=== PATIENT | male | born 1980 | race American Indian/Alaskan Native ===

== ENCOUNTER 2021-11-26 10:12 | Emergency (ER) | payer SELFPAY ==
[2021-11-26] MEDS ORDERED: diphenhydrAMINE 50 MG/ML VIAL IV ONE (12:11)
[2021-11-26] MEDS ORDERED: methylPREDNISolone Sod Succinate 125 MG/2 ML INJ IV ONE (12:12)
[2021-11-26 12:13] VITALS: BP 140/95
[2021-11-26 12:41] LABS: Basophils % (Auto) 0.4 % (0.0-1.8); Eosinophils % (Auto) 0.7 % (0.0-4.3); Hematocrit 34.8 % (35.5-45.6); Hemoglobin 11.4 gm/dl (11.8-15.2); Lymphocytes # (Auto) 1.4 K/mm3 (1.2-5.4); Lymphocytes % (Auto) 20.2 % (13.4-35.0); Mean Corpuscular HGB Conc 33 % (32-34); Mean Corpuscular Volume 85 fl (84-94); Monocytes # (Auto) 0.6 K/mm3 (0.0-0.8); Monocytes % (Auto) 7.9 % (0.0-7.3); Platelet Count 446 K/mm3 (140-440); Red Blood Count 4.08 M/mm3 (3.65-5.03); Red Cell Distribution Width 15.9 % (13.2-15.2)
[2021-11-26 12:55] LABS: BUN/Creatinine Ratio 6; Blood Urea Nitrogen 5 mg/dL (9-20); Calcium 8.7 mg/dL (8.4-10.2); Hemolysis Index 1
--- NOTE | 2021-11-26 12:59 | Emergency Department Report ---
ED ENT HPI - General Chief complaint: Dental/Oral Stated complaint: THROAT/TONGUE/FACE SWOLLEN Source: patient Mode of arrival: Ambulatory Limitations: No Limitations - History of Present Illness Initial comments: 41-year-old male presents to the emergency department with left-sided throat, tongue swelling face swelling which all began suddenly when he woke up this morning. States he had an episode of tonsillitis for a while", but has not followed up with it. Currently not taking any antibiotics. He denies dental pain, headache dizziness or vision changes, he denies taking any medications no FRANCIS inhibitor's, No fever, no nausea vomiting no sick contacts or recent travel.. Reports about a week ago he had an episode where his extremities were swollen and he was seen at [facility] with a negative work-up and discharged home. States he still itching all over his extremities, does not seem to get better with no management. MD complaint: sore throat, difficulty swallowing -: Sudden Location: tongue, throat Severity: moderate Severity scale (0 -10): 0 Improves with: none Worsens with: none Associated Symptoms: denies: fever, cough, gum swelling, toothache, pain with swallowing, sore throat, tinnitus, hearing loss, discharge from ear - Related Data Previous Rx's Medication Instructions Recorded Last Taken Type Acetamin/Codeine 120-12Mg/5 ml 5 ml PO TID PRN #60 oz 11/26/21 Unknown Rx [Tylenol/Codeine] Clindamycin [Clindamycin CAP] 300 mg PO Q8H 7 Days #21 cap 11/26/21 Unknown Rx Ibuprofen [Motrin 600 MG tab] 600 mg PO Q8H PRN #30 tablet 11/26/21 Unknown Rx Triamcinolone 0.5% [Kenalog 0.5% 1 applic TP TID #1 tube 11/26/21 Unknown Rx CREAM] diphenhydrAMINE [Benadryl CAP] 25 mg PO Q8HR PRN #30 capsule 11/26/21 Unknown Rx methylPREDNISolone [Medrol 4MG 4 mg PO DAILY #1 11/26/21 Unknown Rx DOSEPAK (21 tabs)] Allergies Allergy/AdvReac Type Severity Reaction Status Date / Time No Known Allergies Allergy Unverified 11/26/21 12:06 ED Dental HPI - General Chief complaint: Dental/Oral Stated complaint: THROAT/TONGUE/FACE SWOLLEN Source: patient Mode of arrival: Ambulatory Limitations: No Limitations - History of Present Illness MD complaint: sore throat, difficulty swallowing -: Sudden Severity: moderate - Related Data Previous Rx's Medication Instructions Recorded Last Taken Type Acetamin/Codeine 120-12Mg/5 ml 5 ml PO TID PRN #60 oz 11/26/21 Unknown Rx [Tylenol/Codeine] Clindamycin [Clindamycin CAP] 300 mg PO Q8H 7 Days #21 cap 11/26/21 Unknown Rx Ibuprofen [Motrin 600 MG tab] 600 mg PO Q8H PRN #30 tablet 11/26/21 Unknown Rx Triamcinolone 0.5% [Kenalog 0.5% 1 applic TP TID #1 tube 11/26/21 Unknown Rx CREAM] diphenhydrAMINE [Benadryl CAP] 25 mg PO Q8HR PRN #30 capsule 11/26/21 Unknown Rx methylPREDNISolone [Medrol 4MG 4 mg PO DAILY #1 11/26/21 Unknown Rx DOSEPAK (21 tabs)] Allergies Allergy/AdvReac Type Severity Reaction Status Date / Time No Known Allergies Allergy Unverified 11/26/21 12:06 ED Review of Systems ROS: Stated complaint: THROAT/TONGUE/FACE SWOLLEN Other details as noted in HPI Constitutional: denies: diaphoresis, fever Eyes: denies: eye pain ENT: as per HPI, throat pain. denies: ear pain, congestion Respiratory: denies: cough, orthopnea, shortness of breath, wheezing Cardiovascular: denies: chest pain, palpitations, dyspnea on exertion Endocrine: denies: excessive sweating, intolerance to cold, intolerance to heat Gastrointestinal: denies: abdominal pain, nausea, vomiting, diarrhea Genitourinary: denies: urgency, frequency Musculoskeletal: denies: back pain, joint swelling Skin: rash, lesions, pruritus Neurological: denies: headache, weakness, numbness, paresthesias ED Past Medical Hx - Past Medical History Hx Hypertension: Yes Additional medical history: HIGH CHOLESTROL - Surgical History Past Surgical History?: No - Medications Home Medications: Home Medications Medication Instructions Recorded Confirmed Last Taken Type Acetamin/Codeine 120-12Mg/5 ml 5 ml PO TID PRN #60 oz 11/26/21 Unknown Rx [Tylenol/Codeine] Clindamycin [Clindamycin CAP] 300 mg PO Q8H 7 Days #21 cap 11/26/21 Unknown Rx Ibuprofen [Motrin 600 MG tab] 600 mg PO Q8H PRN #30 tablet 11/26/21 Unknown Rx Triamcinolone 0.5% [Kenalog 0.5% 1 applic TP TID #1 tube 11/26/21 Unknown Rx CREAM] diphenhydrAMINE [Benadryl CAP] 25 mg PO Q8HR PRN #30 capsule 11/26/21 Unknown Rx methylPREDNISolone [Medrol 4MG 4 mg PO DAILY #1 11/26/21 Unknown Rx DOSEPAK (21 tabs)] ED Physical Exam - General Limitations: No Limitations General appearance: alert - Head Head exam: Present: atraumatic, other (There is left maxillary swelling, lip swelling, tongue swelling, no drooling speaking without difficulty) - Eye Eye exam: Present: normal appearance - ENT ENT exam: Present: normal exam, normal orophraynx, other (There is tonsillar enlargement bilaterally almost kissing the uvula uvula is benign. No erythema, no exudate. He is able to swallow he is able to tolerate his oral secretions, is able to speak without drooling, no hoarseness,) - Neck Neck exam: Present: normal inspection. Absent: tenderness - Respiratory Respiratory exam: Present: normal lung sounds bilaterally. Absent: respiratory distress, wheezes - Cardiovascular Cardiovascular Exam: Present: regular rate - GI/Abdominal GI/Abdominal exam: Present: soft - Rectal Rectal exam: Absent: deferred - Back Exam Back exam: Present: normal inspection, full ROM - Neurological Exam Neurological exam: Present: alert, oriented X3 - Skin Skin exam: Present: warm, dry, rash (Patient has some pruitic lichenified patches on his extremities.) ED Course Vital Signs 11/26/21 12:09 Temperature 97.8 F Pulse Rate 68 Respiratory 18 Rate Blood Pressure 140/95 [Right] O2 Sat by Pulse 99 Oximetry ED Medical Decision Making - Lab Data Result diagrams: 11/26/21 12:20 11/26/21 12:20 - Medical Decision Making No drooling no trismus tolerating oral secretions no fever no vomiting. He is afebrile, unable to tolerate p.o. medications without difficulty. Clindamycin, steroids, pain medicine and ENT referral. Also refer to dermatology for further skin testing. Patient remained stable nontoxic-appearing, afebrile, ambulating steadily without assistance. Gone over ED findings with patient as well as plan for follow-up. Also discussed return precautions with patient, all questions and concerns addressed. Patient is stable to be discharged follow-up outpatient. Audio voice dictation device used, hence the chart might contain some dictation errors, mispronunciations, wrong spelling and wrong verbiage. Critical care attestation.: If time is entered above; I have spent that time in minutes in the direct care of this critically ill patient, excluding procedure time. ED Disposition Clinical Impression: Acute tonsillitis, Swelling of face, Dermatitis Disposition: HOME / SELF CARE / HOMELESS Is pt being admited?: No Does the pt Need Aspirin: No Condition: Stable Instructions: Tonsillitis, [id number], Contact Dermatitis, [id number] Prescriptions: diphenhydrAMINE [Benadryl CAP] 25 mg PO Q8HR PRN #30 capsule PRN Reason: Itching Clindamycin [Clindamycin CAP] 300 mg PO Q8H 7 Days #21 cap Triamcinolone 0.5% [Kenalog 0.5% CREAM] 1 applic TP TID #1 tube methylPREDNISolone [Medrol 4MG DOSEPAK (21 tabs)] 4 mg PO DAILY #1 Ibuprofen [Motrin 600 MG tab] 600 mg PO Q8H PRN #30 tablet PRN Reason: Pain Acetamin/Codeine 120-12Mg/5 ml [Tylenol/Codeine] 5 ml PO TID PRN #60 oz PRN Reason: Pain Referrals: [facility] [Provider Group] - 3-5 Days BRITTANIE GREWAL MD [Staff Physician] - 3-5 Days Forms: Work/School Release Form(ED)
--- NOTE | 2021-11-26 15:04 | Cat Scan Report ---
CT MAXILLOFACIAL WITH CONTRAST INDICATION / CLINICAL INFORMATION: left maxillary swelling, throat swelling. TECHNIQUE: All CT scans at this location are performed using CT dose reduction for ALARA by means of automated e xposure control. Contrast dose report: Omnipaque 350: 100 mL administered intravenously. COMPARISON: None available. FINDINGS: AIRWAY: Enlargement of the palatine tonsils is demonstrated bilaterally. There is contact between the tonsils in the midline. There is resultant narrowing of the airway. Correlation with clinical evalua tion regarding the adequacy of the patient's airway is advised. No indication of tonsillar or periton sillar abscess is observed. Adenoidal tissue is prominent in this 50-year-old individual. This study extends down to the level of the arytenoid cartilages. No abnormalities of the visualized larynx are observed. Epiglottis is normal appearance. FACIAL BONES: No fracture or other significant abnormality. ELECTRONIC DEVELOPMENT TECHNICIAN SPACES:Evaluation of the reel film inspector space structures reveal no abnormalities. SALIVARY GLANDS: Parotid and submandibular salivary glands have an unremarkable appearance. PARANASAL SINUSES: Mucosal thickening is present at the base of the posterior ethmoid air cells on th e left. Paranasal sinuses are otherwise free from inflammatory mucosal disease. 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 No add itional abnormality. ORBITS: Globes, optic nerves and extraocular muscles have an unremarkable appearance. TEMPORAL BONES:Visualized mastoid air cells and the middle ear cavities are normally pneumatized. CERVICAL SPINE: Cervical spondylosis is noted with loss of disc height and anterior and posterior ost eophyte formation evident at the C4-5 and C5-6 levels. Enhancement of normal vascular structures is demonstrated. No areas of abnormal contrast enhancement are identified. There is no indication of atherosclerotic disease at the carotid bifurcations or else where. Right vertebral artery is dominant. Left vertebral artery appears to terminate at the level of the left PICA. Visualized portions of the dural sinuses have an unremarkable appearance. VISUALIZED INTRACRANIAL STRUCTURES: No significant abnormality. IMPRESSION: 1. Bilateral tonsillar enlargement consistent with tonsillitis. No indication of tonsillar or perit onsillar abscess. 2. The enlarged tonsils narrow the airway. Correlation with clinical evaluation of the adequacy of th e patient's airway is advised. Signer Name: Gerald Martínez MD Signed: 11/26/2021 3:00 PM Workstation Name: [id number]
== END 2021-11-26 15:00 | disposition home or self-care (01) ==
LOC: ED 10:12
DX: J03.90 Acute tonsillitis, unspecified (principal); L30.9 Dermatitis, unspecified; I10 Essential (primary) hypertension; E78.00 Pure hypercholesterolemia, unspecified; Z79.899 Other long term (current) drug therapy
CPT/HCPCS: 36415; 70487; 80048; 82140; 85025; 96374; 96375; 99284; J1200; J2930; Q9967